=== PATIENT | male | born 1955 | race African-American/Black ===

== ENCOUNTER 2023-01-13 08:18 | Emergency (ER) | payer OTHER ==
[2023-01-13] MEDS ORDERED: ACETAMINOPHEN 1000 MG/100 ML BAG IVPB ONE (09:27)
[2023-01-13] MEDS ORDERED: LIDOCAINE 5% TOPICAL PATCH TP ONE (09:27)
[2023-01-13] MEDS ORDERED: ACETAMINOPHEN INJECTION 100 ML IVPB ONE (09:43)
[2023-01-13] MEDS ORDERED: LIDOCAINE 5% TOPICAL PATCH ONE (09:43)
[2023-01-13 10:11] LABS: BASO % 0.5 % (0-2.0); EOS % 0.1 % (0-4.5); HEMOGLOBIN 13.3 GM/dL (11.7-16.9); MCH 31.3 pg (25.7-33.7); MCHC 35.1 g/dl (32.0-35.9); MEAN CELL VOLUME 89.3 fl (80-96); MEAN PLT VOLUME 10.1 fl (7.5-11.1); NEUT % 68.4 % (42.8-82.8); PLATELET COUNT 180 10^3/uL (134-434); RBC 4.25 M/mm3 (4.00-5.60); RDW 12.6 % (11.9-15.9); WHITE BLOOD COUNT 4.6 K/mm3 (4.0-10.0)
[2023-01-13 10:36] LABS: CHLORIDE 104 mmol/L (98-107); POTASSIUM 4.2 mmol/L (3.5-5.1); SODIUM 142 mmol/L (136-145)
[2023-01-13 10:39] LABS: ALBUMIN 4.2 g/dl (3.4-5.0); ANION GAP 8 MMOL/L (8-16); BLOOD UREA NITROGEN 8.4 mg/dL (7-18); CO2 30 mmol/L (21-32); GLUCOSE,RANDOM 106 mg/dL (74-106); MAGNESIUM 2.1 mg/dL (1.8-2.4)
[2023-01-13 10:42] LABS: SGOT/AST 27 U/L (15-37); SGPT/ALT 20 U/L (13-61)
[2023-01-13 10:43] LABS: TOT PROT 7.4 g/dl (6.4-8.2)
[2023-01-13 10:44] LABS: BILIRUBIN,TOTAL 1.5 mg/dL (0.2-1)
[2023-01-13 10:45] LABS: ALK PHOS 60 U/L (45-117)
[2023-01-13 10:49] LABS: CALCIUM 6.3 mg/dL (8.5-10.1)
[2023-01-13] MEDS ORDERED: CALCIUM GLUCONATE 10% - 1,000 MG/10 ML VIAL IVPB ONE (12:12)
[2023-01-13] MEDS ORDERED: CALCIUM GLUC IN NACL, ISO-OSM 1 GM/50 ML BAG IVPB ONE (12:46)
[2023-01-13 14:00] VITALS: BP 137/64; PULSE 84; RESP 20; TEMP 98.1
[2023-01-13] MEDS ORDERED: LIDOCAINE PATCH REMOVAL MC ONE (22:00)
== END 2023-01-13 14:09 | disposition home or self-care (01) ==
LOC: JER 08:18
PROC: 3E033NZ Introduction of Analgesics, Hypnotics, Sedatives into Peripheral Vein, Percutaneous Approach (ICD-10-PCS; principal; 2023-01-13)
PROC: 3E033GC Introduction of Other Therapeutic Substance into Peripheral Vein, Percutaneous Approach (ICD-10-PCS; 2023-01-13)
DX: M25.552 Pain in left hip (principal); R22.43 Localized swelling, mass and lump, lower limb, bilateral
CPT/HCPCS: 36415; 73502-TC-LT-FY; 80053; 83735; 85025; 93005; 93010; 99285-25

== ENCOUNTER 2024-09-17 06:29 | Observation (INO) | payer OTHER ==
[2024-09-17 06:43] VITALS: BMI 31.0
[2024-09-17 08:19] LABS: INR 1.09 (0.83-1.09); PROTHROMBIN TIME (PATIENT) 11.9 SEC (9.7-13.0)
[2024-09-17 08:22] LABS: ACTIVATED PTT 30.5 SECONDS (25.2-36.5)
[2024-09-17 08:35] LABS: POTASSIUM 3.3 mmol/L (3.5-5.1)
[2024-09-17 08:37] LABS: CALCIUM 7.2 mg/dL (8.5-10.1)
[2024-09-17 08:38] LABS: BLOOD UREA NITROGEN 10.6 mg/dL (7-18); MAGNESIUM 1.7 mg/dL (1.8-2.4)
[2024-09-17 08:41] LABS: CREATININE 0.9 mg/dL (0.55-1.3)
[2024-09-17 08:43] LABS: BILIRUBIN,TOTAL 2.3 mg/dL (0.2-1); TOT PROT 7.4 g/dl (6.4-8.2)
[2024-09-17 08:44] LABS: ABSOLUTE IMMATURE GRANULOCYTES 0.01 x10^3/uL (0.0-0.031); BASOPHILS # 0.02 x10^3/uL (0.01-0.08); EOSINOPHIL % 0.2 % (0.8-7.0); EOSINOPHILS # 0.01 x10^3/uL (0.04-0.54); HEMATOCRIT 39.1 % (40.1-51.0); HEMOGLOBIN 13.5 g/dL (13.7-17.5); MCHC 34.5 g/dl (32.3-36.5); MEAN CELL VOLUME 90.9 fl (79.0-92.2); MEAN PLT VOLUME 12.6 fl (9.4-12.4); MONOCYTE # 0.42 x10^3/uL (0.30-0.82); MONOCYTE % 9.7 % (5.3-12.2); PLATELET COUNT 156 x10^3/uL (163-337); RDW 11.4 % (12.2-16.4)
[2024-09-17] MEDS ORDERED: POTASSIUM CHLORIDE ORAL LIQUID 20 MEQ/15 ML ONE (08:45)
[2024-09-17] MEDS ORDERED: CALCIUM GLUC IN NACL, ISO-OSM 1 GM/50 ML BAG IVPB ONE (08:45)
[2024-09-17] MEDS ORDERED: MAGNESIUM 1GM/D5W - 1 GM/100 ML IVPB IVPB ONE (08:46)
[2024-09-17] MEDS: MAGNESIUM 1GM/D5W - 1 GM/100 ML IVPB IVPB ONE (09:23)
[2024-09-17] MEDS: POTASSIUM CHLORIDE ORAL LIQUID 20 MEQ/15 ML PO ONE (09:23)
[2024-09-17] MEDS: CALCIUM GLUC IN NACL, ISO-OSM 1 GM/50 ML BAG IVPB ONE (09:23)
[2024-09-17 10:29] LABS: URINE APPEARANCE CLEAR; URINE BILIRUBIN NEGATIVE (NEGATIVE); URINE COLOR YELLOW; URINE GLUCOSE (UA) NEGATIVE (NEGATIVE); URINE KETONE NEGATIVE (NEGATIVE); URINE LEUK ESTERASE NEGATIVE (NEGATIVE); URINE NITRITE NEGATIVE (NEGATIVE); URINE PROTEIN NEGATIVE (NEGATIVE); URINE UROBILINOGEN 0.2 mg/dL (0.2-1.0)
[2024-09-17] MEDS: INSULIN ASPART SLIDING SCALE (NOVOLOG) 1 VIAL SQ SCH (16:45)
[2024-09-17] MEDS ORDERED: ENALAPRIL MALEATE 10 MG TABLET PO SCH (17:00)
[2024-09-17] MEDS: CALCIUM CARBONATE 650 MG TABLET PO SCH (17:33)
[2024-09-17] MEDS: CALCITRIOL 0.25 MCG CAPSULE (FP) PO SCH (17:48)
[2024-09-17] MEDS: ATORVASTATIN CA 40 MG TABLET (FP) PO SCH (22:59)
[2024-09-17] MEDS: MAGNESIUM OXIDE 400 MG TABLET (FP) PO SCH (23:00)
[2024-09-18 06:56] LABS: ABSOLUTE IMMATURE GRANULOCYTES 0.01 x10^3/uL (0.0-0.031); BASOPHILS # 0.02 x10^3/uL (0.01-0.08); EOSINOPHIL % 0.7 % (0.8-7.0); EOSINOPHILS # 0.02 x10^3/uL (0.04-0.54); HEMATOCRIT 38.5 % (40.1-51.0); MCHC 33.8 g/dl (32.3-36.5); MEAN CELL VOLUME 92.3 fl (79.0-92.2); MEAN PLT VOLUME 12.4 fl (9.4-12.4); MONOCYTE # 0.29 x10^3/uL (0.30-0.82); MONOCYTE % 9.7 % (5.3-12.2); PLATELET COUNT 148 x10^3/uL (163-337); RDW 11.6 % (12.2-16.4)
[2024-09-18 07:16] LABS: POTASSIUM 3.9 mmol/L (3.5-5.1)
[2024-09-18 07:22] LABS: CALCIUM 7.4 mg/dL (8.5-10.1)
[2024-09-18 07:23] LABS: ALBUMIN 3.8 g/dl (3.4-5.0); BLOOD UREA NITROGEN 9.8 mg/dL (7-18); MAGNESIUM 1.7 mg/dL (1.8-2.4)
[2024-09-18 07:26] LABS: PHOSPHOROUS 5.8 mg/dL (2.5-4.9)
[2024-09-18 07:27] LABS: CREATININE 0.9 mg/dL (0.55-1.3); TOT PROT 7.1 g/dl (6.4-8.2)
[2024-09-18] MEDS: ASPIRIN 81 MG CHEWABLE TABLETS PO SCH (10:00)
[2024-09-18] MEDS: amLODIPine BESYLATE 10 MG TABLET (FP) PO SCH (10:00)
[2024-09-18] MEDS: LOSARTAN POTASSIUM 50 MG TABLET PO SCH (10:00)
[2024-09-18] MEDS ORDERED: PATIENT'S OWN MEDICATION (NON-FORMULARY) (Amlodipine Bes/Olmesartan Med [Amlodipine-Olmesa PO SCH (10:00)
[2024-09-18] MEDS: CLOPIDOGREL BISULFATE 75 MG TABLET (FP) PO SCH (10:00)
[2024-09-18] MEDS: MAGNESIUM 1GM/D5W 100ML - 100 ML IVPB IVPB ONE (12:34)
[2024-09-18] MEDS: hydrALAZINE HCL 25 MG TABLET (FP) PO ONE (17:53)
[2024-09-19 08:11] LABS: HEMATOCRIT 38.2 % (40.1-51.0); HEMOGLOBIN 13.1 g/dL (13.7-17.5); MCHC 34.3 g/dl (32.3-36.5); MEAN CELL VOLUME 91.8 fl (79.0-92.2); MEAN PLT VOLUME 12.6 fl (9.4-12.4); PLATELET COUNT 148 x10^3/uL (163-337); RDW 11.7 % (12.2-16.4)
[2024-09-19 08:29] LABS: POTASSIUM 3.8 mmol/L (3.5-5.1)
[2024-09-19 08:35] LABS: ALBUMIN 3.7 g/dl (3.4-5.0); BLOOD UREA NITROGEN 9.6 mg/dL (7-18); CALCIUM 7.2 mg/dL (8.5-10.1)
[2024-09-19 08:39] LABS: CREATININE 0.9 mg/dL (0.55-1.3); TOT PROT 7.1 g/dl (6.4-8.2)
[2024-09-19] MEDS: CALCIUM (OYSTER SHELL) 500 MG TABLET (FP) PO SCH (17:03)
[2024-09-20 08:57] LABS: HEMATOCRIT 39.6 % (40.1-51.0); HEMOGLOBIN 13.7 g/dL (13.7-17.5); MCHC 34.6 g/dl (32.3-36.5); MEAN PLT VOLUME 12.9 fl (9.4-12.4); PLATELET COUNT 164 x10^3/uL (163-337); RDW 11.8 % (12.2-16.4)
[2024-09-20 09:05] LABS: POTASSIUM 3.7 mmol/L (3.5-5.1)
[2024-09-20 09:13] LABS: ALBUMIN 3.8 g/dl (3.4-5.0); BLOOD UREA NITROGEN 13.2 mg/dL (7-18)
[2024-09-20 09:16] LABS: CREATININE 0.9 mg/dL (0.55-1.3)
[2024-09-20 09:17] LABS: TOT PROT 7.5 g/dl (6.4-8.2)
[2024-09-20] MEDS: CALCITRIOL 0.25 MCG CAPSULE (FP) PO SCH (10:00)
[2024-09-21 06:56] LABS: HEMATOCRIT 39.1 % (40.1-51.0); HEMOGLOBIN 13.2 g/dL (13.7-17.5); MCHC 33.8 g/dl (32.3-36.5); MEAN CELL VOLUME 90.9 fl (79.0-92.2); MEAN PLT VOLUME 12.5 fl (9.4-12.4); PLATELET COUNT 159 x10^3/uL (163-337); RDW 11.6 % (12.2-16.4)
[2024-09-21 07:09] LABS: POTASSIUM 3.7 mmol/L (3.5-5.1)
[2024-09-21 07:14] LABS: ALBUMIN 3.9 g/dl (3.4-5.0); CALCIUM 7.7 mg/dL (8.5-10.1)
[2024-09-21 07:15] LABS: BLOOD UREA NITROGEN 13.6 mg/dL (7-18); MAGNESIUM 1.9 mg/dL (1.8-2.4)
[2024-09-21 07:18] LABS: CREATININE 0.9 mg/dL (0.55-1.3)
[2024-09-21 07:20] LABS: BILIRUBIN,TOTAL 1.8 mg/dL (0.2-1); TOT PROT 7.4 g/dl (6.4-8.2)
[2024-09-22 14:06] LABS: PARATHYROID HORM INTACT 13 pg/mL (15-65)
[2024-09-22 16:00] VITALS: BP 148/89; PULSE 69; RESP 18; TEMP 97.7
== END 2024-09-22 16:15 | disposition home or self-care (01) ==
LOC: JER 06:29 → JERBED 10:42 → J4S 13:54
PROVIDERS: ADMIT Internal Medicine; ATTEND Family Medicine
PROC: 3E033GC Introduction of Other Therapeutic Substance into Peripheral Vein, Percutaneous Approach (ICD-10-PCS; principal; 2024-09-17)
DX: R07.9 Chest pain, unspecified (principal); E78.5 Hyperlipidemia, unspecified; I10 Essential (primary) hypertension; E83.42 Hypomagnesemia; N28.1 Cyst of kidney, acquired; E83.51 Hypocalcemia; D69.6 Thrombocytopenia, unspecified; D72.819 Decreased white blood cell count, unspecified; E11.9 Type 2 diabetes mellitus without complications; Z86.73 Personal history of transient ischemic attack (TIA), and cerebral infarction without residual deficits
CPT/HCPCS: 0241U-QW; 36415; 70450-TC; 70496-TC; 70498-TC; 70551-TC; 71045-TC-FY; 71260-TC; 74177-TC; 80053; 81003; 82306; 82310; 82962; 83690; 83735; 83970; 84100; 84443; 84484; 85025; 85027; 85610; 85730; 86850; 86900; 86901; 87086; 93005; 93010; 93306-TC; 97116-GP; 97162-GP; 99285-25; G0378